=== PATIENT | female | born 2000 | race Caucasian/White ===

== ENCOUNTER 2018-03-08 13:27 | Emergency (ER) | payer OTHER ==
[~2018-03-08] VITALS: Ht 165.1 cm; Wt 63.0 kg
[2018-03-08 13:46] VITALS: BP 135/73
[2018-03-08 14:15] LABS: CLARITY,URINE TURBID (Clear); COLOR,URINE AMBER (Yellow); GLUCOSE, URINE NEGATIVE (Neg); KETONES,URINE TRACE mg/dl (Neg); LEUKOCYTE ESTERASE ,URINE MODERATE (Neg); NITRITES, URINE POSITIVE (Neg); OCCULT BLOOD,URINE LARGE (Neg); PH,URINE 5.5 (4.8-8.0); PROTEIN,URINE >=300 mg/dl (Neg)
[2018-03-08 14:16] LABS: URINE HCG NEGATIVE (NEG)
[2018-03-08 14:29] LABS: UA COLLECTION TYPE CLN CATCH MIDSTREAM
[2018-03-08 14:31] LABS: BACTERIA,URINE 2+ /HPF (Neg); RBC,URINE 20-50 /HPF (0-2); RENAL CELLS, URINE FEW /HPF; SQUAMOUS EPITHELIAL CELL,UR FEW /LPF (FEW); WBC CLUMPS,URINE MANY /HPF (NEGATIVE); WBC,URINE TNTC /HPF (0-4)
== END 2018-03-08 15:28 | disposition left against medical advice (07) ==
LOC: ER 13:27
DX: N39.0 Urinary tract infection, site not specified (principal)
CPT/HCPCS: 81001; 81025; 87077; 87088; 87186; 99284